=== PATIENT | female | born 1985 | race Two or more races ===

== ENCOUNTER 2017-09-17 18:20 | Emergency (ER) | payer MEDICAID ==
[~2017-09-17] VITALS: Ht 162.6 cm; Wt 95.3 kg
[2017-09-17 19:20] LABS: Basophils # (auto) 0.1 uL; Basophils % (auto) 0.8 % (0.0-2.0); Eosinophils # (auto) 0.3 uL; Eosinophils % (auto) 1.6 % (0.0-7.0); Hematocrit 35.2 % (36.0-46.0); Hemoglobin 11.6 g/dL (12.2-16.2); Lymphocytes # (auto) 1.5 uL; Lymphocytes % (auto) 8.3 % (10.0-50.0); Mean Corpuscular Hemoglobin 31.7 pg (28.0-32.0); Mean Corpuscular Volume 96.1 fL (80.0-100.0); Monocytes # (auto) 1.3 uL; Monocytes % (auto) 7.2 % (0.0-12.0); Neutrophils # (auto) 14.4 uL; Neutrophils % (auto) 82.1 % (37.0-80.0); Platelet Count (auto) 296 10^3/uL (140-450); Red Blood Cells 3.66 10^6/uL (4.0-5.20); Red Cell Distribution Width 15.8 % (11.8-14.3); White Blood Cell 17.5 10^3/uL (4.4-10.8)
[2017-09-17 19:33] LABS: INR 1.32 (0.9-1.15); Prothrombin Time 13.9 sec (9.27-12.13)
[2017-09-17 19:34] LABS: Potassium 3.3 mmol/L (3.5-5.1)
[2017-09-17 19:38] LABS: Albumin 3.3 g/dL (3.4-5.0); BUN/Creatinine Ratio 5.8; Calcium 8.4 mg/dL (8.5-10.1)
[2017-09-17 19:40] LABS: Bilirubin, Total 1.2 mg/dL (0.2-1.0); Total Protein 9.8 g/dL (6.4-8.2)
[2017-09-17 19:48] LABS: Urine Bacteria NONE SEEN /hpf (None Seen); Urine Blood Negative /uL (Negative); Urine Specific Gravity 1.002 (1.001-1.035); Urine WBC <1 /hpf (0 - 5)
[2017-09-18 00:21] VITALS: BP 141/74
[2017-09-18] MEDS ORDERED: THIAMINE INJ 100 MG, MULTIPLE VITAMIN 10 ML, FOLIC ACID 1 MG, MAGNESIUM SULF SDV 50% 8 ... IV SCH ×5 (12:00)
== END 2017-09-18 01:19 | disposition home or self-care (01) ==
LOC: ER 18:20
DX: R04.0 Epistaxis (principal); K72.90 Hepatic failure, unspecified without coma; G92 Toxic encephalopathy; F10.120 Alcohol abuse with intoxication, uncomplicated
CPT/HCPCS: 36415; 80053; 80320; 81001; 81025; 85025; 85610